=== PATIENT | male | born 1960 | race Caucasian/White ===

== ENCOUNTER 2016-11-19 12:54 | Emergency (ER) | payer OTHER ==
[~2016-11-19] VITALS: Ht 175.3 cm; Wt 82.0 kg
[2016-11-19 12:56] VITALS: BP 140/96; PULSE 87; RESP 15; TEMP 98.2; O2SAT 98
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
[2016-11-19] MEDS ORDERED: LIDOCAINE 1%/EPINEPHrine 1:100,000 SOLN 20 ML VIAL INFIL ONE (14:30)
[2016-11-19] MEDS ORDERED: SODIUM CHLORIDE 0.9% FLUSH 5 ML FLUSH IVF PRN (14:45)
[2016-11-19 14:59] LABS: AUTOMATED NEUTROPHIL # 5.9 TH/MM3 (1.8-7.7); BASOPHIL % 0.4 % (0.0-2.0); EOSINOPHIL % 0.6 % (0.0-4.0); HEMATOCRIT 41.6 % (39.0-51.0); HEMO FLAGS DIFF FINAL; LYMPH % 14.8 % (9.0-44.0); LYMPHOCYTE # 1.2 TH/MM3 (1.0-4.8); MEAN CELL VOLUME 83.1 FL (80.0-100.0); MEAN CORPUSCULAR HEMOGLOBIN 29.3 PG (27.0-34.0); MEAN CORPUSCULAR HGB CONC 35.3 % (32.0-36.0); MONO % 7.8 % (0.0-8.0); NEUT % 76.4 % (16.0-70.0); PLATELET COUNT 203 TH/MM3 (150-450); RED BLOOD COUNT 5.01 MIL/MM3 (4.50-5.90); RED CELL DISTRIBUTION WIDTH 12.6 % (11.6-17.2); WHITE BLOOD COUNT 7.8 TH/MM3 (4.0-11.0)
[2016-11-19 15:11] LABS: APTT (PATIENT) 28.1 SEC (24.3-30.1); PROTHROMBIN TIME - PATIENT 10.6 SEC (9.8-11.6)
[2016-11-19 15:20] VITALS: BP 136/92; PULSE 74; RESP 20; O2SAT 98
[2016-11-19 15:21] VITALS: O2SAT 97
[2016-11-19 15:50] LABS: BICARBONATE 29.4 MEQ/L (21.0-32.0); POTASSIUM 4.6 MEQ/L (3.5-5.1)
[2016-11-19 16:00] VITALS: BP 147/107; PULSE 68; RESP 20; O2SAT 98
[2016-11-19] MEDS ORDERED: LIDOCAINE HCL 1% 50 ML VIAL INFIL ONE (16:30)
[2016-11-19] MEDS ORDERED: ceFAZolin 2 GM PREMIX 50 ML ONE (17:03)
[2016-11-19] MEDS ORDERED: CEPH-460 PO (17:19)
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
== END 2016-11-19 18:08 | disposition home or self-care (01) ==
LOC: NEPA 12:54
DX: S71.111A Laceration without foreign body, right thigh, initial encounter (principal); W26.0XXA Contact with knife, initial encounter; Y93.89 Activity, other specified; Y92.9 Unspecified place or not applicable
CPT/HCPCS: 13120; 80048; 85025; 85610; 85730; 86850; 86900; 86901; 96374; 99285; J0690